=== PATIENT | female | born 1945 | race Caucasian/White ===

== ENCOUNTER 2021-03-09 13:34 | Inpatient (IN) | payer OTHER ==
[~2021-03-09] VITALS: Ht 167.6 cm; Wt 72.6 kg
[2021-03-09] MEDS ORDERED: ZYRTEC10 M3 PO (13:57)
[2021-03-09] MEDS ORDERED: SYNTHROID75 MCG PO (13:57)
[2021-03-09] MEDS ORDERED: JANUMET 50-1,01 EACH PO (13:58)
[2021-03-10] MEDS ORDERED: ENALAPRIL MALE2.5 MG (14:43)
[2021-03-10] MEDS ORDERED: SIMVASTATIN40 MG (14:44)
[2021-03-10] MEDS ORDERED: RALOXIFENE HCL60 MG (14:44)
[2021-03-10] MEDS ORDERED: FLUOXETINE HCL20 MG (14:44)
[2021-03-11] MEDS ORDERED: PERCOCET 5-3251 EACH PO (07:24)
[2021-03-11] MEDS ORDERED: ELIQUIS2.5 MG PO (07:24)
[2021-03-11] MEDS ORDERED: WHEELCHAIR (07:27)
[2021-03-11] MEDS ORDERED: WALKER (07:28)
== END 2021-03-11 10:00 | disposition home or self-care (01) | DRG 494 ==
LOC: ER 13:34 → SURG 20:50 → O/R 20:50 → SEC-K 20:50 → O/R 03-10 13:50 → SURG 03-10 18:58
PROVIDERS: ADMIT Orthopaedic Surgery; ATTEND Orthopaedic Surgery
PROC: 0MQQ0ZZ Repair Right Ankle Bursa and Ligament, Open Approach (ICD-10-PCS; 2021-03-10)
PROC: 2W3LX2Z Immobilization of Right Lower Extremity using Cast (ICD-10-PCS; 2021-03-10)
PROC: 0QSG04Z Reposition Right Tibia with Internal Fixation Device, Open Approach (ICD-10-PCS; principal; 2021-03-10 20:15)
DX: S82.851A Displaced trimalleolar fracture of right lower leg, initial encounter for closed fracture (principal); S93.04XA Dislocation of right ankle joint, initial encounter; S93.421A Sprain of deltoid ligament of right ankle, initial encounter; S93.491A Sprain of other ligament of right ankle, initial encounter; S90.01XA Contusion of right ankle, initial encounter; I10 Essential (primary) hypertension; E11.9 Type 2 diabetes mellitus without complications; E03.9 Hypothyroidism, unspecified